=== PATIENT | male | born 1975 | race Caucasian/White ===

== ENCOUNTER → 2016-11-15 | Outpatient (CLI) | payer SELFPAY | LOC: COL.RAD 10:23 | DX: M25.561 Pain in right knee (principal) ==

== ENCOUNTER 2019-10-27 01:28 | Emergency (ER) | payer SELFPAY ==
[~2019-10-27] VITALS: Ht 170.2 cm; Wt 95.5 kg
[2019-10-27 02:50] VITALS: BP 128/80; PULSE 64; TEMP 97.9
== END 2019-10-27 02:50 | disposition home or self-care (01) ==
LOC: COL.ER 01:28
DX: H10.9 Unspecified conjunctivitis (principal)

== ENCOUNTER → 2020-08-07 | Outpatient (CLI) | payer SELFPAY | LOC: ZCOL.LAB 13:15 | DX: U07.1 COVID-19 (principal) ==